=== PATIENT | female | born 2000 | race Caucasian/White ===

== ENCOUNTER 2020-01-21 17:23 | Emergency (ER) | payer OTHER ==
[2020-01-21 17:31] VITALS: BP 109/69
--- NOTE | 2020-01-21 19:45 | ED Physician Documentation ---
History of Present Illness - Stated complaint Stated Complaint: ALLERGIC REACTION - Chief complaint Chief Complaint: Allergic Rx - Additonal information Additional information: 19-year-old female presents to the emergency department for evaluation of generalized body flushing and erythema after she took 500 mg of niacin this afternoon. She had never taken niacin before but reports that she had a little nausea and had read online that it would help with nausea. About 30 minutes after taking the niacin she began to have a generalized flushing and it lasted for approximately 90 minutes before dissipating. At this time she denies any ab dominal pain, chest pain tongue or lip swelling or dyspnea.Eyes any urinary symptoms urgency frequency or dysuria. at this time the flushing has completely dissipated Review of Systems Constitutional: reports: Reviewed and negative Eyes: reports: Reviewed and negative Ears: reports: Reviewed and negative Nose: reports: Rhinorrhea / runny nose Throat: reports: Reviewed and negative Cardiac: reports: Reviewed and negative Respiratory: reports: Reviewed and negative GI: reports: Nausea. denies: Abdominal Pain, Abdominal Swelling, Vomiting, Constipation, Diarrhea, Hematemesis : reports: Reviewed and negative Skin: denies: Rash, Lesions, Other (generalized flushing and erything fully dissipated) Musculoskeletal: reports: Reviewed and negative PD PAST MEDICAL HISTORY - Past Medical History Past Medical History: No Cardiovascular: None Respiratory: None Neuro: None Endocrine/Autoimmune: None GI: None OFFICE TECHNICIAN: None : None HEENT: None Musculoskeletal: None Derm: None - Past Surgical History Past Surgical History: No - Present Medications Home Medications: Ambulatory Orders Medication Instructions Recorded Confirmed No Known Home Medications 01/21/20 01/21/20 - Allergies Allergies/Adverse Reactions: Allergies Allergy/AdvReac Type Severity Reaction Status Date / Time No Known Drug Allergies Allergy Verified 01/21/20 17:27 - Social History Does the pt smoke?: No Smoking Status: Never smoker Does the pt drink ETOH?: No Does the pt have substance abuse?: No - Immunizations Immunizations are current?: Yes - POLST Patient has POLST: No PD ED PE NORMAL - General General: Alert and oriented X 3, No acute distress, Well developed/nourished - HEENT HEENT: EOMI - Neck Neck: Supple, no meningeal sign, No adenopathy - Cardiac Cardiac: RRR, No murmur - Respiratory Respiratory: No respiratory distress, Clear bilaterally - Abdomen Abdomen: Normal bowel sounds, Soft, Non tender - Back Back: No CVA TTP - Derm Derm: Normal color, Warm and dry, No rash - Extremities Extremities: No deformity, No tenderness to palpate Results - Vitals Vitals: Vital Signs - 24 hr 01/21/20 17:27 Temperature 36.5 C Heart Rate 64 Respiratory 16 Rate Blood Pressure 109/69 O2 Saturation 98 Oxygen O2 Source Room air PD MEDICAL DECISION MAKING - ED course Complexity details: d/w patient, d/w family ED course: 19-year-old female presented to the emergency department after developing g eneralized erythema and flushing after she took a large dose of niacin for nausea. We discussed that Larger doses of niacin can often cause skin flushing and erythema. She has no signs at present of an allergic reaction. She also denies at this time that she has any abdominal pain nausea or urinary symptoms. I advised that in the future if she developed any nausea to try a different [id number] remedy and that the skin flushing is a common reaction to sudden large doses of niacin Departure - Departure Disposition: 01 Home, Self Care Clinical Impression: Nafcillin-induced rash Condition: Stable Record reviewed to determine appropriate education?: Yes Comments: Concepcion the flushing that you developed is common with larger doses of niacin. I am glad however that it has gone away. Niacin is typically given to help with cardiovascular risk factors of which you have none. Please do not take niacin in that dosing anymore. Return to the emergency department if you develop chest pain have shortness of breath tongue or lip swelling.
== END 2020-01-21 19:52 | disposition home or self-care (01) ==
LOC: ED 17:23
DX: L27.1 Localized skin eruption due to drugs and medicaments taken internally (principal); T36.0X5A Adverse effect of penicillins, initial encounter
CPT/HCPCS: 99281; 99284